=== PATIENT | male | born 1940 | race Two or more races ===

== ENCOUNTER 2022-02-03 17:52 | Emergency (ER) | payer OTHER ==
[~2022-02-03] VITALS: Ht 172.7 cm; Wt 63.5 kg
[2022-02-03 18:01] VITALS: BP 161/71
[2022-02-03] MEDS ORDERED: ACETAMINOPHEN 500 MG TAB PO ONE (18:15)
== END 2022-02-04 00:30 | disposition left against medical advice (07) ==
LOC: ER 17:52
DX: U07.1 COVID-19 (principal); B34.9 Viral infection, unspecified; E11.9 Type 2 diabetes mellitus without complications; I10 Essential (primary) hypertension
CPT/HCPCS: 93005